=== PATIENT | male | born 1950 | race Hispanic/Latino ===

== ENCOUNTER 2018-03-07 23:46 | Emergency (ER) | payer OTHER ==
[2018-03-08 00:44] LABS: APPEARANCE,URINE Clear (CLEAR); BILIRUBIN,URINE Negative (NEGATIVE); COLOR,URINE Yellow (YELLOW); GLUCOSE, URINE (UA) Negative (NEGATIVE); KETONES,URINE Negative (NEGATIVE); LEUKOCYTE ESTERASE ,URINE Negative (NEGATIVE); NITRATE,URINE Negative (NEGATIVE); OCCULT BLOOD,URINE Moderate (NEGATIVE); PROTEIN,URINE Negative (NEGATIVE); UROBILINOGEN,URINE 0.2 mg/dL (0.2-1.0)
[2018-03-08 00:51] LABS: BACTERIA,URINE None Seen /HPF (None Seen); WBC,URINE None Seen /HPF (0-1)
== END 2018-03-08 01:28 | disposition home or self-care (01) ==
LOC: EDH 23:46
DX: R33.9 Retention of urine, unspecified (principal); I10 Essential (primary) hypertension; E78.5 Hyperlipidemia, unspecified
CPT/HCPCS: 51702; 81001

== ENCOUNTER → 2022-10-09 | Outpatient (CLI) | payer OTHER | END | disposition home or self-care (01) | LOC: SLP 10:00 | PROVIDERS: ATTEND Internal Medicine Cardiovascular Disease | DX: G47.33 Obstructive sleep apnea (adult) (pediatric) (principal) | CPT/HCPCS: 95810 ==

== ENCOUNTER → 2022-10-14 | Outpatient (CLI) | payer OTHER | END | disposition home or self-care (01) | LOC: RAH 12:55 | PROVIDERS: ATTEND Internal Medicine Cardiovascular Disease | DX: Z13.6 Encounter for screening for cardiovascular disorders (principal); I51.5 Myocardial degeneration | CPT/HCPCS: 75571 ==

== ENCOUNTER → 2022-12-01 | Outpatient (CLI) | payer OTHER ==
[~2022-12-01] MED LIST: ASCO100031 PO; CHOL500045 PO; FINA5TAB41 PO; LEVO50CA4 PO; LISI1TAB53 PO; METO-391 PO; ROSU5TAB12 PO; TAMS-1 PO; ZINC220T4 PO
== END | disposition home or self-care (01) ==
LOC: SLP 20:30
PROVIDERS: ATTEND Internal Medicine Cardiovascular Disease
DX: G47.33 Obstructive sleep apnea (adult) (pediatric) (principal)
CPT/HCPCS: 95811

== ENCOUNTER 2022-12-03 11:12 | Observation (INO) | payer OTHER ==
[~2022-12-03] VITALS: Ht 182.9 cm; Wt 110.7 kg
[2022-12-03] MEDS ORDERED: LACTULOSE 20 GM/30 ML UDCUP PO PRN (11:30)
[2022-12-03] MEDS ORDERED: DIPHENHYDRAMINE HCL 25 MG CAPSULE PO PRN (11:30)
[2022-12-03] MEDS ORDERED: KCL 20 MEQ ERTAB PO PRN (11:30)
[2022-12-03] MEDS ORDERED: ONDANSETRON 4MG INJ IVP PRN (11:30)
[2022-12-03] MEDS ORDERED: POTASSIUM CHLORIDE 20MEQ/100ML 100 ML IV PRN (11:30)
[2022-12-03] MEDS ORDERED: POTASSIUM CHLORIDE 10% ELIXIR 20 MEQ/15 ML UDCUP PO PRN (11:30)
[2022-12-03] MEDS ORDERED: ACETAMINOPHEN 325 MG TAB PO PRN (11:30)
[2022-12-03] MEDS ORDERED: LIDOCAINE HCL-MPF 1% 2ML VIAL IV PRN (11:30)
[2022-12-03 11:58] LABS: BASOPHILS % (AUTO) 0.3 % (0.0-5.0); EOSINOPHILS % (AUTO) 3.7 % (0.0-8.0); HEMATOCRIT 35.6 % (42-54); LYMPHOCYTES % (AUTO) 14.3 % (21.0-51.0); MEAN CORPUSCULAR HEMOGLOBIN 29.4 pg (27.0-33.0); MEAN CORPUSCULAR VOLUME 81.7 fL (79-99); MONOCYTES % (AUTO) 4.9 % (3.0-13.0); NEUTROPHILS % (AUTO) 76.3 % (40.0-77.0); PLATELET COUNT (AUTO) 167 K/uL (130-400); RED BLOOD CELL COUNT(AUTO) 4.36 MIL/uL (4.50-6.20); RED CELL DISTRIBUTION WIDTH 12.8 % (11.0-15.5); WHITE BLOOD COUNT (AUTO) 5.9 K/uL (4.8-10.8)
[2022-12-03] MEDS ORDERED: TAMS-1 PO (12:02)
[2022-12-03] MEDS ORDERED: ROSU5TAB12 PO (12:03)
[2022-12-03] MEDS ORDERED: METO-391 PO (12:10)
[2022-12-03] MEDS ORDERED: CHOL500045 PO (12:10)
[2022-12-03] MEDS ORDERED: LEVO50CA4 PO (12:10)
[2022-12-03] MEDS ORDERED: ZINC220T4 PO (12:10)
[2022-12-03] MEDS ORDERED: LISI1TAB53 PO (12:10)
[2022-12-03] MEDS ORDERED: FINA5TAB41 PO (12:10)
[2022-12-03] MEDS ORDERED: ASCO100031 PO (12:10)
[2022-12-03 12:26] LABS: B-TYPE NATRIURETIC PEPTIDE 54 pg/mL (0-100)
[2022-12-03 12:29] LABS: ALBUMIN 4.2 g/dL (3.5-5.0); POTASSIUM 3.8 mmol/L (3.5-5.1); THYROID STIMULATING HORMONE 2.35 uIU/mL (0.36-3.74); TOTAL PROTEIN, SERUM 7.5 g/dL (6.0-8.3)
[2022-12-03 12:43] LABS: CREATININE 1.2 mg/dL (0.5-1.5)
[2022-12-03 18:00] VITALS: BP 155/78
[2022-12-03 20:27] VITALS: BP 157/74
[2022-12-03] MEDS: FAMOTIDINE 20MG TAB PO SCH (21:46)
[2022-12-03 23:57] VITALS: BP 141/68
[2022-12-04] VITALS (11 sets, daily range): BP systolic 116–149; BP diastolic 66–74
[2022-12-04 03:33] LABS: HEMATOCRIT 33.3 % (42-54); MEAN CORPUSCULAR HEMOGLOBIN 29.3 pg (27.0-33.0); MEAN CORPUSCULAR HGB CONC 35.4 g/dL (32.0-36.0); MEAN CORPUSCULAR VOLUME 82.6 fL (79-99); RED BLOOD CELL COUNT(AUTO) 4.03 MIL/uL (4.50-6.20); RED CELL DISTRIBUTION WIDTH 13.1 % (11.0-15.5); WHITE BLOOD COUNT (AUTO) 5.5 K/uL (4.8-10.8)
[2022-12-04 03:49] LABS: ALBUMIN 3.7 g/dL (3.5-5.0); CREATININE 1.3 mg/dL (0.5-1.5); POTASSIUM 3.7 mmol/L (3.5-5.1); TOTAL PROTEIN, SERUM 6.7 g/dL (6.0-8.3)
[2022-12-04] MEDS: 0.9%NACL 1000ML 1,000 ML IV SCH ×2 (07:30→17:30)
[2022-12-04] MEDS ORDERED: IOHEXOL-350 50ML VIAL IV ONE (07:40)
[2022-12-04] MEDS ORDERED: HEPARIN 10,000 UNIT/10ML (1,000 UNIT/ML) VIAL ONE (07:40)
[2022-12-04] MEDS ORDERED: IOHEXOL 350 MG/ML 100ML INFUS..BTL IV ONE (07:40)
[2022-12-04] MEDS ORDERED: NITROGLYCERIN 50MG VIAL ONE (07:40)
[2022-12-04] MEDS ORDERED: MEPERIDINE-PF 25 MG/ML SYG ONE ×2 (07:40→07:54)
[2022-12-04] MEDS ORDERED: NICARDIPINE 25MG INJ IV ONE (07:40)
[2022-12-04] MEDS ORDERED: MIDAZOLAM HCL 1 MG/ML 2ML VIAL ONE ×2 (07:41→07:54)
[2022-12-04] MEDS ORDERED: LIDOCAINE HCL 400MG/20ML VIAL ONE (07:41)
[2022-12-04] MEDS ORDERED: SODIUM BICARB 50MEQ 50ML VIAL 50 ML ONE (07:41)
[2022-12-04] MEDS ORDERED: HYDROCHLOROTHIAZIDE 25 MG TABLET PO SCH (09:00)
[2022-12-04] MEDS ORDERED: TAMSULOSIN HCL 0.4 MG CAP.ER.24H PO SCH (09:00)
[2022-12-04] MEDS ORDERED: FINASTERIDE 5 MG TABLET PO SCH (09:00)
[2022-12-04] MEDS ORDERED: **HM** VIT D3 125MCG PO SCH (09:00)
[2022-12-04] MEDS ORDERED: ATORVASTATIN 10 MG TABLET PO SCH (09:00)
[2022-12-04] MEDS ORDERED: LISINOPRIL 20 MG TABLET PO SCH (09:00)
[2022-12-04] MEDS ORDERED: LEVOTHYROXINE 50 MCG TABLET PO SCH (09:00)
[2022-12-04] MEDS ORDERED: ASCORBIC ACID 500 MG TAB PO SCH (09:00)
[2022-12-04] MEDS ORDERED: ASPIRIN 81MG CHEW TAB PO SCH (09:00)
[2022-12-04] MEDS ORDERED: ZINC SULFATE 220 CAPSULE PO SCH (09:00)
[2022-12-04] MEDS: FAMOTIDINE 20MG TAB PO SCH (10:17)
== END 2022-12-04 18:45 | disposition home or self-care (01) ==
LOC: EDH 11:12 → DIRECT 11:13 → INTOOBSV 11:13 → 2AH 18:17
PROVIDERS: ADMIT Internal Medicine; ATTEND Internal Medicine
DX: I47.20 Ventricular tachycardia, unspecified (principal); F32.A Depression, unspecified; G47.33 Obstructive sleep apnea (adult) (pediatric); E78.5 Hyperlipidemia, unspecified; E03.9 Hypothyroidism, unspecified; D64.9 Anemia, unspecified; N40.0 Benign prostatic hyperplasia without lower urinary tract symptoms; I48.92 Unspecified atrial flutter; I12.9 Hypertensive chronic kidney disease with stage 1 through stage 4 chronic kidney disease, or unspecified chronic kidney disease; N18.30 Chronic kidney disease, stage 3 unspecified; K59.00 Constipation, unspecified; F17.200 Nicotine dependence, unspecified, uncomplicated; E78.1 Pure hyperglyceridemia; Z79.01 Long term (current) use of anticoagulants; Z79.899 Other long term (current) drug therapy; Z98.890 Other specified postprocedural states
CPT/HCPCS: 84443; 84484 ×2; 80061; 80053 ×2; 83880; 85025; 36415 ×2; 71045; 93005; 93458; 85027; 93306; 93356; C1769; C1894 ×3; Q9965; G0378 ×4; J3490 ×4; J1644 ×2; J2250 ×2; J2175 ×2; Q9967 ×2; 99156; 99157